=== PATIENT | female | born 1950 | race Caucasian/White ===

== ENCOUNTER 2016-11-14 21:17 | Emergency (ER) | payer OTHER ==
[~2016-11-14] VITALS: Ht 162.6 cm; Wt 56.7 kg
[2016-11-14] MEDS ORDERED: NKM (21:37)
[2016-11-14 21:40] VITALS: BP 122/50
[2016-11-14] MEDS ORDERED: IBUPROFEN600 MG ORAL (22:23)
[2016-11-14] MEDS ORDERED: LIDODERM700 M1 TOPIC (22:23)
[2016-11-14 22:36] VITALS: BP 122/50
--- NOTE | 2016-11-15 00:36 | Emergency Room Report ---
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 Denies hitting head Didnt take any OTC meds C/o sharp pain to outer right thigh and right shoulder, 6/10 Denies any bruising Denies pain to right hip, reduced ROM of right shoulder, pain to right knee/ ankle/foot Allergies: Coded Allergies: No Known Allergies (Unverified , 11/14/16) Patient History Past Medical History: none Past Surgical History: none Pertinent Family History: none Social History: Denies: smoking, alcohol use, drug use Last Menstrual Period: Menopause Now: No Immunizations: UTD Reviewed Nursing Documentation: PMH: Agreed, PSxH: Agreed Nursing Documentation-PMH Past Medical History: No Stated History Review of Systems All Other Systems: negative except mentioned in HPI Physical Exam Vital Signs Date Time Temp Pulse Resp B/P (MAP) Pulse Ox O2 Delivery O2 Flow Rate FiO2 11/14/16 21:31 98.1 77 16 119/78 98 Room Air Sp02 EP Interpretation: reviewed, normal General Appearance: normal inspection, well appearing, no apparent distress, alert, other - Patient observed walking in ED, doing various yoga stretches of right lower extremity, including holding right leg under her right arm, above head without difficulty Head: atraumatic ENT: normal ENT inspection, hearing grossly normal, normal voice Neck: normal inspection, full range of motion, supple, no bony tend Respiratory: normal inspection, lungs clear, normal breath sounds, no respiratory distress, no retraction, no wheezing Cardiovascular #1: regular rate, rhythm, no edema Gastrointestinal: normal inspection, normal bowel sounds, non tender, soft, no guarding, no hernia Genitourinary: no CVA tenderness Musculoskeletal: normal inspection, back normal, normal range of motion, Alfonso' s Sign negative, other - Right thigh: No obvious bruising or trauma. No ttp to right hip, knee, knee, lower extremity. Right shoulder: full ROM. No signs of trauma. No bruising. No ttp to right upper arm, forearm, wrist/hand Neurologic: normal inspection, alert, oriented x3, responsive, visual communications instructor III-XII nml as tested, motor strength/tone normal, speech normal Psychiatric: normal inspection, judgement/insight normal, mood/affect normal Skin: normal inspection, normal color, no rash Medical Decision Making Diagnostic Impression: Primary Impression: Multiple injuries due to trauma ER Course All likely muscular in nature Nothing in exam suggests broken bone that would require imaging at this time Analgesia provided Rx Lidoderm patch as needed Has PMD followup this week Last Vital Signs Date Time Temp Pulse Resp B/P (MAP) Pulse Ox O2 Delivery O2 Flow Rate FiO2 11/14/16 22:36 98.1 66 14 122/50 100 Room Air Status: improved Disposition: HOME, SELF-CARE Condition: Improved Scripts Lidocaine (Lidoderm) 1 Each Adh..patch 1 PATCH TOPIC DAILY for For Pain for 7 Days, #14 PATCH 0 Refills Patch(es) may remain in place for up to 12 hours in any 24-hour period. Prov: JYOTI PATINO M.D. 11/14/16 Ibuprofen* (MOTRIN*) 600 Mg Tablet 600 MG ORAL THREE TIMES A DAY for For Pain for 7 Days, #30 TAB 0 Refills Prov: JYOTI PATINO M.D. 11/14/16 Referrals: NOT CHOSEN [facility]/,REFERRING (PCP) Departure Forms: Return to Work Return to Work in (Days): 1 Return to Work Date: Nov 15, 2016 Patient Instructions: Musculoskeletal Pain Additional Instructions: - Take motrin 600mg every 8 hours with food as needed for pain - Apply lidoderm patch to area of pain on right leg - Follow up with your doctor in 2-3 days JYOTI PATINO M.D. Nov 15, 2016 00:36
== END 2016-11-14 22:36 | disposition home or self-care (01) ==
LOC: EMR 22:05
DX: M79.651 Pain in right thigh (principal); M25.511 Pain in right shoulder
CPT/HCPCS: 99284

== ENCOUNTER 2018-06-23 18:32 | Emergency (ER) | payer MEDICAID, OTHER ==
[~2018-06-23] VITALS: Ht 162.6 cm; Wt 56.7 kg
[~2018-06-23 18:32] MED LIST: DIFLUCAN100 MG ORAL; ERYTHROMYCIN1 G1 OP; IBUPROFEN600 MG ORAL; LIDODERM700 M1 TOPIC; NITROFURANTOIN100 M2 ORAL; NKM; VALACYCLOVIR500 MG ORAL
[2018-06-23 18:57] VITALS: BP 137/71
--- NOTE | 2018-06-23 19:21 | Emergency Room Report ---
History of Present Illness General Chief Complaint: Skin Rash/Abscess Source: Patient Present Illness HPI 68-year-old female presents to the emergency department complaining of 8 out of 10 in severity localized pain to the right side of her chin progressive 3 days. Patient reports what looked like a pimple initially has progressed to more swelling, erythema and warmth and pain. Patient denies significant past medical history she states that she recently had dental a procedure performed that she is currently taking Bactrim for. She denies itching. Pt. denies fevers , chills or swollen tender lymph nodes. Denies lesions/rashes elsewhere on the body. Denies swelling of the lips, tongue , throat or airway. Denies wheezing, or shortness of breath. Denies recent travel, recent illness or ill contacts. denies blisters, oral lesions, or sloughing of the skin Allergies: Coded Allergies: No Known Allergies (Unverified , 11/14/16) Patient History Past Medical History: see triage record Past Surgical History: none Pertinent Family History: none Now: No Reviewed Nursing Documentation: PMH: Agreed; PSxH: Agreed Nursing Documentation-PMH Past Medical History: No Stated History Review of Systems All Other Systems: negative except mentioned in HPI Physical Exam Vital Signs Date Time Temp Pulse Resp B/P (MAP) Pulse Ox O2 Delivery O2 Flow Rate FiO2 06/23/18 18:42 98.4 64 17 137/71 98 Room Air Sp02 EP Interpretation: reviewed, normal General Appearance: no apparent distress, alert, GCS 15, non-toxic Head: normocephalic, atraumatic Eyes: bilateral eye normal inspection, bilateral eye PERRL ENT: hearing grossly normal, no angioedema, normal voice Neck: full range of motion Respiratory: normal breath sounds, no wheezing, speaking full sentences Cardiovascular #1: regular rate, rhythm Musculoskeletal: back normal, gait/station normal, normal range of motion, non- tender Neurologic: alert, oriented x3, responsive, motor strength/tone normal, sensory intact, speech normal, grossly normal Psychiatric: judgement/insight normal Skin: no rash, warm/dry, well hydrated, other - 1.5mm area of induration, erythema and warmth with punctate center leaking straw colored fluid. no blisters or vesicles. Lymphatic: no adenopathy Medical Decision Making PA Attestation Dr. rasheed is my supervising Physician whom patient management has been discussed with. Diagnostic Impression: Primary Impression: Cellulitis and abscess of face ER Course 68-year-old female presents to the emergency department complaining of 8 out of 10 in severity localized pain to the right side of her chin progressive 3 days. Patient reports what looked like a pimple initially has progressed to more swelling, erythema and warmth and pain. Patient denies significant past medical history she states that she recently had dental a procedure performed that she is currently taking Bactrim for. She denies itching. Pt. denies fevers , chills or swollen tender lymph nodes. Denies lesions/rashes elsewhere on the body. Denies swelling of the lips, tongue , throat or airway. Denies wheezing, or shortness of breath. Denies recent travel, recent illness or ill contacts. denies blisters, oral lesions, or sloughing of the skin Ddx considered but are not limited to cellulitis, abscess, cystic acne, necrotizing fasciitis, insect bite. Vital signs: are WNL, pt. is afebrile H&PE are most consistent with facial abscess- non fluctuant --I & D will be deferred to avoid additional scaring at this time especially since no fluctuance is easily palpated. the lesion is indurated. ORDERS: none required at this time, the diagnosis is clinical ED INTERVENTIONS: -none -Pt. given strict ED return precautions. DISCHARGE: At this time pt. is stable for d/c to home. Will provide printed patient care instructions, and any necessary prescriptions. Care plan and follow up instructions have been discussed with the patient prior to discharge. Last Vital Signs Date Time Temp Pulse Resp B/P (MAP) Pulse Ox O2 Delivery O2 Flow Rate FiO2 06/23/18 18:57 98.4 78 17 137/71 98 Room Air Disposition: HOME, SELF-CARE Condition: Stable Scripts Acetaminophen With Codeine (T#3) (TYLENOL #3 TAB*) Y Tab 1 TAB ORAL Q8HR PRN for For Pain, #9 TAB Prov: Jeanette Fofana 06/23/18 Mupirocin* (MUPIROCIN*) 22 Gm Oint...g. 1 APPLIC TOPIC THREE TIMES A DAY, #22 GM Prov: Jeanette Fofana 06/23/18 Cephalexin* (KEFLEX*) 500 Mg Capsule 500 MG ORAL EVERY 12 HOURS for 7 Days, #14 CAP 0 Refills Prov: Jeanette Fofana 06/23/18 Referrals: [facility]ERR[facility] (PCP) Patient Instructions: Abscess Additional Instructions: Take medications as directed. Follow up with a Primary Care Provider in 3-5 days, even if your symptoms have resolved. --Please review list of primary care clinics, if you do not already have a primary care provider Return sooner to ED if new symptoms occur, or current symptoms become worse. Do not drink alcohol, drive, or operate heavy machinery while taking Tylenol # 3 as this may cause drowsiness. - Please note that this Emergency Department Report was dictated using [employer]/event planner technology software, occasionally this can lead to erroneous entry secondary to interpretation by the dictation equipment. Jeanette Fofana Jun 23, 2018 19:21
[2018-06-23] MEDS ORDERED: MUPIROCIN22 GM TOPIC (19:26)
[2018-06-23] MEDS ORDERED: CEPHALEXIN500 MG ORAL (19:26)
[2018-06-23] MEDS ORDERED: ACETAMINOPHEN-1 EAC1 ORAL (19:26)
[2018-06-23 19:29] VITALS: BP 133/70
== END 2018-06-23 19:29 | disposition home or self-care (01) ==
LOC: EMR 19:01
DX: L03.211 Cellulitis of face (principal)
CPT/HCPCS: 99282

== ENCOUNTER 2018-06-28 23:08 | Emergency (ER) | payer MEDICAID ==
[~2018-06-28] VITALS: Ht 162.6 cm; Wt 56.7 kg
[~2018-06-28 23:08] MED LIST changes: +ACETAMINOPHEN-1 EAC1 ORAL; +CEPHALEXIN500 MG ORAL; +MUPIROCIN22 GM TOPIC
[2018-06-28 23:45] VITALS: BP 122/67
--- NOTE | 2018-06-28 23:45 | NUR ---
ER Nurse Note: Pt came from home c/o skin abscess since 06/23. Pt stated she may have been bitten by a bug and it became swollen and red. Pt denies pain but expresses discomfort. Right chin red, swollen, clear drainage on site. No signs of infection. Will continue to monitor.
[2018-06-28] MEDS ORDERED: MUPIROCIN22 GM TOPIC (23:59)
[2018-06-29] MEDS ORDERED: Bacitracin Oint UD TOPIC ONE
--- NOTE | 2018-06-29 | Emergency Room Report ---
History of Present Illness General Chief Complaint: Skin Rash/Abscess Source: Patient Present Illness HPI This is a 68-year-old female who was seen here couple days ago for an abscess to her right chin area. She's given Keflex and Bactrim she said it was doing well and then today after she got out of the shower this Fell off. She was concerned so she came in to be rechecked. There was slight drainage but no drainage now. No fever or chills. Redness much improved. Denies any other complaint. No pain. Allergies: Coded Allergies: No Known Allergies (Unverified , 11/14/16) Patient History Past Medical History: see triage record, old chart reviewed Past Surgical History: other Pertinent Family History: none Social History: Denies: smoking Now: No Immunizations: other Reviewed Nursing Documentation: PMH: Agreed; PSxH: Agreed Nursing Documentation-PMH Past Medical History: No Stated History Review of Systems Eye: Denies: eye pain, blurred vision ENT: Denies: ear pain, nose congestion, throat swelling Respiratory: Denies: cough, shortness of breath Cardiovascular: Denies: chest pain, palpitations Gastrointestinal: Denies: abdominal pain, diarrhea, nausea, vomiting Musculoskeletal: Denies: back pain, joint pain Skin: Denies: rash Neurological: Denies: headache, numbness Endocrine: Denies: increased thirst, increased urine Hematologic/Lymphatic: Denies: easy bruising All Other Systems: negative except mentioned in HPI Physical Exam Vital Signs Date Time Temp Pulse Resp B/P (MAP) Pulse Ox O2 Delivery O2 Flow Rate FiO2 06/28/18 23:26 98.2 68 12 122/67 100 vitals normal Sp02 EP Interpretation: reviewed, normal General Appearance: well appearing, no apparent distress, alert Head: normocephalic, atraumatic Eyes: bilateral eye PERRL, bilateral eye EOMI ENT: hearing grossly normal, normal pharynx, other - Right chin: This is an indurated area of about 2 cm. This is central ulceration. No drainage. No redness. Neck: full range of motion, supple, no meningismus Respiratory: chest non-tender, lungs clear, normal breath sounds Cardiovascular #1: regular rate, rhythm, no murmur Gastrointestinal: normal bowel sounds, non tender, no mass, no organomegaly, no bruit, non-distended Musculoskeletal: back normal, gait/station normal, normal range of motion Psychiatric: mood/affect normal Skin: warm/dry Medical Decision Making Diagnostic Impression: Primary Impression: Abscess ER Course She with an abscess to her right chin. The eschar fell off. The wound is indurated. I see no abscess that can be I&D. We'll treat symptomatically. No need for further antibiotics. Last Vital Signs Date Time Temp Pulse Resp B/P (MAP) Pulse Ox O2 Delivery O2 Flow Rate FiO2 06/28/18 23:26 98.2 68 12 122/67 100 Status: improved Disposition: HOME, SELF-CARE Condition: Stable Scripts Mupirocin* (MUPIROCIN*) 22 Gm Oint...g. 1 APPLIC TOPIC THREE TIMES A DAY, #22 GM Prov: Flavio Foster MD 06/28/18 Referrals: [facility] (PCP) Patient Instructions: Abscess Additional Instructions: Wound clean. Clean first with hydroperoxide. Then apply antibiotic ointment. Follow-up in 2-3 days with your DrKandy for recheck. Return if worse. Flavio Foster MD Jun 28, 2018 23:59
[2018-06-29 00:08] VITALS: BP 122/67
--- NOTE | 2018-06-29 00:08 | NUR ---
ER Nurse Note: Pt seen, treated, medically cleared for discharge by ERMD. Discharge instructions given with repeat verbazliaion by pt. Instructed pt to follow up with primary care provider within one week. Pt a&ox4, VSS, no signs of distress. Site clean and applied bacitracin per ERMD order. ID band removed. Pt left with all belongings with steady gait via own transportation.
== END 2018-06-29 00:08 | disposition home or self-care (01) ==
LOC: EMR 23:22
DX: L02.01 Cutaneous abscess of face (principal)
CPT/HCPCS: 99282

== ENCOUNTER 2019-12-25 12:04 | Emergency (ER) | payer MEDICAID ==
[~2019-12-25] VITALS: Ht 165.1 cm; Wt 59.0 kg
[2019-12-25 12:21] VITALS: BP 130/73
--- NOTE | 2019-12-25 12:21 | NUR ---
ED Nurse Note: Pt walked in to ED c/o dysuria with urinary urgency and frequency x1 week. Pt also reports the atb she is taking is causing her diarrhea and abdominal pain. AAOx4, verbally responsive. No SOB. No fever.
[2019-12-25 12:51] LABS: APPEARANCE,URINE CLEAR; BILIRUBIN, URINE NEGATIVE (NEGATIVE); COLOR,URINE PALE YELLOW; GLUCOSE, URINE (UA) NEGATIVE (NEGATIVE); KETONES,URINE NEGATIVE (NEGATIVE); LEUKOCYTE ESTERASE ,URINE 3+ (NEGATIVE); NITRITE,URINE NEGATIVE (NEGATIVE); PH,URINE 6.5 (4.5-8.0); PROTEIN,URINE NEGATIVE (NEGATIVE); UROBILINOGEN,URINE NORMAL MG/DL (0.0-1.0)
--- NOTE | 2019-12-25 13:06 | Emergency Room Report ---
History of Present Illness General Chief Complaint: Female Urogenital Problems Source: Patient Present Illness HPI 69-year-old female presents to the emergency department complaining of 7 out of 10 severity dysuria with urinary frequency that is been progressive x1 week. Patient is also reporting some lower abdominal discomfort that is constant in nature. Patient reports approximately 2 weeks ago she had root canal procedure performed and was placed on penicillin. Patient states that after taking antibiotic she began having multiple days of diarrhea. Patient states that several days after her diarrhea cleared up she began having her urogenital symptoms. Patient states that she has burning sensation in the labia as well. She denies vaginal discharge. She reports that she tried Monistat cream with no relief as well. She denies hematuria. She denies low back pain. She denies fevers or chills. She denies nausea or vomiting. Patient denies suspicion of STI. Patient reports she denies suspicion of bacterial vaginosis. Patient is concerned that she may have UTI and she is also concerned about yeast infections after taking antibiotics. She denies genital rash. She reports she is otherwise healthy. Allergies: Coded Allergies: No Known Allergies (Unverified , 11/14/16) COVID-19 Screening Contact w/high risk pt: No Experienced COVID-19 symptoms?: No COVID-19 Testing performed GANG TAILER: No Patient History Past Medical History: see triage record Past Surgical History: none Pertinent Family History: none Last Menstrual Period: na Reviewed Nursing Documentation: PMH: Agreed; PSxH: Agreed Nursing Documentation-PM Past Medical History: No Stated History Review of Systems All Other Systems: negative except mentioned in HPI Physical Exam Vital Signs Date Time Temp Pulse Resp B/P (MAP) Pulse Ox O2 Delivery O2 Flow Rate FiO2 12/25/19 12:18 98.2 76 17 130/73 (92) 98 Room Air Sp02 EP Interpretation: reviewed, normal General Appearance: no apparent distress, alert, GCS 15, non-toxic Head: normocephalic, atraumatic Eyes: bilateral eye normal inspection, bilateral eye PERRL ENT: hearing grossly normal, normal voice Neck: full range of motion Respiratory: lungs clear, normal breath sounds, speaking full sentences Cardiovascular #1: regular rate, rhythm Gastrointestinal: normal bowel sounds, non tender, soft Genitourinary: normal inspection, no CVA tenderness, deferred - pelvic exam deferred, pt. wants urine examined. Musculoskeletal: normal range of motion, gait/station normal Neurologic: alert, motor strength/tone normal, oriented x3, sensory intact, responsive, speech normal Psychiatric: judgement/insight normal Skin: no rash Medical Decision Making PA Attestation Dr. Major is my supervising Physician whom patient management has been discussed with. Diagnostic Impression: Primary Impression: Urinary tract infection Qualified Codes: N30.00 - Acute cystitis without hematuria ER Course 69-year-old female presents to the emergency department complaining of 7 out of 10 severity dysuria with urinary frequency that is been progressive x1 week. Patient is also reporting some lower abdominal discomfort that is constant in nature. Patient reports approximately 2 weeks ago she had root canal procedure performed and was placed on penicillin. Patient states that after taking antibiotic she began having multiple days of diarrhea. Patient states that several days after her diarrhea cleared up she began having her urogenital symptoms. Patient states that she has burning sensation in the labia as well. She denies vaginal discharge. She reports that she tried Monistat cream with no relief as well. She denies hematuria. She denies low back pain. She denies fevers or chills. She denies nausea or vomiting. Patient denies suspicion of STI. Patient reports she denies suspicion of bacterial vaginosis. Patient is concerned that she may have UTI and she is also concerned about yeast infections after taking antibiotics. She denies genital rash. She reports she is otherwise healthy. Ddx considered but are not limited to UTi , Pyelo, STI, Stone, Cystitis, BV, vaginitis Vital signs: are WNL, pt. is afebrile H&PE are most consistent with UTI and possible BV/Yeast infection. Pt. strongly believes that she is not experiencing BV, and has no DC. d/w pt. the possibility of PH imbalance or abx causing BV or yeast vaginitis. ORDERS: - UA labs are attached - few bacteria, increased inflammatory markers.-We will treat for UTI and await cultures for any event that antibiotic needs to be changed. Discussed this with the patient. ED INTERVENTIONS: None required at this time. -I do not identify an emergent condition at this time. With current presentation, pt. is stable for close outpatient follow up and conservative treatment. D/w pt. to return promptly to ED with worsening or new symptoms.- Pt. verbalizes' understanding and agreement with proposed treatment plan. DISCHARGE: At this time pt. is stable for d/c to home. Will provide printed patient care instructions, and any necessary prescriptions. Care plan and follow up instructions have been discussed with the patient prior to discharge. Labs Test 12/25/19 12:30 Urine Color Pale yellow Urine Appearance Clear Urine pH 6.5 (4.5-8.0) Urine Specific [place] 1.005 (1.005-1.035) Urine Protein Negative (NEGATIVE) Urine Glucose (UA) Negative (NEGATIVE) Urine Ketones Negative (NEGATIVE) Urine Blood 2+ (NEGATIVE) Urine Nitrite Negative (NEGATIVE) Urine Bilirubin Negative (NEGATIVE) Urine Urobilinogen Normal MG/DL (0.0-1.0) Urine Leukocyte Esterase 3+ (NEGATIVE) Urine RBC 0-2 /HPF (0 - 2) Urine WBC 10-15 /HPF (0 - 2) Urine Squamous Epithelial Cells Few /LPF (NONE/OCC) Urine Bacteria Occasional /HPF (NONE) Last Vital Signs Date Time Temp Pulse Resp B/P (MAP) Pulse Ox O2 Delivery O2 Flow Rate FiO2 12/25/19 12:21 98.2 76 17 130/73 98 Room Air Disposition: HOME, SELF-CARE Condition: Stable Scripts Fluconazole (DIFLUCAN) 150 Mg Tablet 150 MG PO ONCE, #1 TAB TAKE ONCE ALL ANTIBIOTICS ARE COMPLETED. Prov: Jeanette Fofana 12/25/19 Nitrofurantoin Monohyd/M-Cryst* (MACROBID 100 MG*) 100 Mg Capsule 100 MG ORAL EVERY 12 HOURS for 5 Days, #10 CAP Prov: Jeanette Fofana 12/25/19 Patient Instructions: Urinary Tract Infection Additional Instructions: Take medications as directed. Follow up with a Primary Care Provider in 3-5 days, even if your symptoms have resolved. --Please review list of primary care clinics, if you do not already have a primary care provider Return sooner to ED if new symptoms occur, or current symptoms become worse. - Please note that this Emergency Department Report was dictated using [employer] engineer technology software, occasionally this can lead to erroneous entry secondary to interpretation by the dictation equipment. Jeanette Fofana Dec 25, 2019 13:06
[2019-12-25] MEDS ORDERED: DIFLUCAN150 MG PO (13:23)
[2019-12-25] MEDS ORDERED: NITROFURANTOIN100 M2 ORAL (13:23)
[2019-12-25 13:24] VITALS: BP 125/74
--- NOTE | 2019-12-25 13:24 | NUR ---
ER DISCHARGE NOTE: Patient is cleared to be discharged per ERMD, pt is aox4, on room air, with stable vital signs. pt was given dc and prescription instructions, pt was able to verbalize understanding, pt id band removed. pt is able to ambulate with steady gait. pt took all belongings.
== END 2019-12-25 13:25 | disposition home or self-care (01) ==
LOC: EMR 12:40
DX: N30.00 Acute cystitis without hematuria (principal)
CPT/HCPCS: 81003; 87086; Z7502; 99282